=== PATIENT | female | born 1965 | race Caucasian/White ===

== ENCOUNTER 2017-04-08 22:03 | Emergency (ER) | payer SELFPAY ==
[~2017-04-08] VITALS: Ht 172.7 cm; Wt 83.9 kg
[~2017-04-08 22:03] MED LIST: FERRALET 90 DU1 EACH PO; NORCO 5-325 TA1 EACH PO; PREMARIN PO; SOMA350 MG PO; ULTRAM 50MG50 MG PO
[2017-04-08] MEDS ORDERED: FAMOTIDINE 20 MG/2 ML VIAL IV STA (22:05)
[2017-04-08] MEDS ORDERED: DIPHENHYDRAMINE HCL INJ 1 ML ONE (22:11)
[2017-04-08] MEDS ORDERED: FAMOTIDINE 20 MG/2 ML VIAL IV ONE (22:11)
[2017-04-08] MEDS ORDERED: METHYLPREDNISOLONE SOD SUCC 125 MG/2ML VIAL ONE (22:11)
[2017-04-08] MEDS ORDERED: DIPHENHYDRAMINE HCL INJ 50 MG/ML VIAL IV ONE (22:15)
[2017-04-08] MEDS ORDERED: METHYLPREDNISOLONE SOD SUCC 125 MG/2ML VIAL IV ONE (22:15)
[2017-04-08 23:07] VITALS: BP 138/76
== END 2017-04-08 23:15 | disposition home or self-care (01) ==
LOC: ER 22:03
DX: T78.1XXA Other adverse food reactions, not elsewhere classified, initial encounter (principal); T78.3XXA Angioneurotic edema, initial encounter
CPT/HCPCS: 99283; J1200; J2930